=== PATIENT | female | born 1960 | race Caucasian/White ===

== ENCOUNTER → 2018-01-19 | Outpatient (CLI) | payer OTHER ==
[~2018-01-19] MED LIST: BRINTELLIX20 MG PO; BUSP10 PO; Bactrim Ds Tab1 EACH PO; CLON.5 PO; CLON1 PO; Effexor Xr37.5 MG PO; Keflex500 MG PO; METF500 PO; OMEP20ER; OMEP20ER PO; PARO20 PO; PRAZ1 PO; Pyridium200 MG PO; QUET100 PO; QUET200 PO; SERT100; SERT50 PO; TRAM50 PO; VITAMIN D-32000 UNIT PO; ZESTORETIC 20-121 EA PO
[2018-01-19 13:36] LABS: Influenza A Negative (NEGATIVE); Influenza B Negative (NEGATIVE)
== END | disposition home or self-care (01) ==
LOC: LAB UCHC 09:45
PROVIDERS: Physician Assistant
DX: J11.1 Influenza due to unidentified influenza virus with other respiratory manifestations (principal)
CPT/HCPCS: 87804

== ENCOUNTER → 2018-02-05 | Outpatient (CLI) | payer OTHER | LOC: LAB SHORT 10:57 → LAB EV 10:57 | DX: N39.0 Urinary tract infection, site not specified (principal) | CPT/HCPCS: 87077; 87086; 87147; 87186 ==

== ENCOUNTER → 2020-08-19 | Outpatient (CLI) | payer OTHER ==
[~2020-08-19] MED LIST changes: +ATIVAN0.5 MG; +ESCI10
== END | disposition home or self-care (01) ==
LOC: LAB SHORT 13:02 → LAB 13:02
DX: N39.0 Urinary tract infection, site not specified (principal)
CPT/HCPCS: 87086

== ENCOUNTER → 2020-09-04 | Outpatient (CLI) | payer OTHER | END | disposition home or self-care (01) | LOC: LAB 18:10 → LAB SHORT 18:10 | DX: R30.0 Dysuria (principal) | CPT/HCPCS: 87077; 87086; 87186 ==

== ENCOUNTER → 2022-01-07 | Outpatient (CLI) | payer MEDICARE, BC | LOC: LAB SHORT 11:25 | DX: M25.50 Pain in unspecified joint (principal) | CPT/HCPCS: 86430 ==

== ENCOUNTER → 2022-12-06 | Outpatient (CLI) | payer OTHER | END | disposition home or self-care (01) | LOC: LAB 09:33 → LAB SHORT 09:33 | DX: N39.0 Urinary tract infection, site not specified (principal) | CPT/HCPCS: 87086 ==

== ENCOUNTER → 2023-02-21 | Outpatient (CLI) | payer OTHER ==
[2023-02-21 17:33] LABS: BASOPHILS ABSOLUTE AUTO 0.06 K/mm3 (0.00-0.23); BASOPHILS PERCENT AUTO 1 % (0-2); EOSINOPHILS ABSOLUTE AUTO 0.09 K/mm3 (0.00-0.68); EOSINOPHILS PERCENT AUTO 1 % (0-6); Hematocrit 44.7 % (33.0-51.0); Hemoglobin 15.6 g/dL (11.5-16.0); IMMATURE GRAN ABSOLUTE AUTO 0.03 K/mm3 (0.00-0.10); IMMATURE GRAN PERCENT AUTO 0 % (0-1); LYMPHOCYTES ABSOLUTE AUTO 1.78 K/mm3 (0.84-5.20); LYMPHOCYTES PERCENT AUTO 21 % (21-46); MONOCYTES ABSOLUTE AUTO 0.54 K/mm3 (0.16-1.47); MONOCYTES PERCENT AUTO 6 % (4-13); Mean Corpuscular HGB 29.1 pg (26.0-34.0); Mean Corpuscular HGB Conc 34.9 g/dL (31.5-36.5); Mean Corpuscular Volume 83 fL (80-100); Mean Platelet Volume 10.7 fL (9.1-12.4); NEUTROPHILS ABSOLUTE AUTO 6.05 K/mm3 (1.96-9.15); NEUTROPHILS PERCENT AUTO 71 % (41-73); Platelet Count 205 K/mm3 (150-400); RDW Coefficient Variation 12.6 % (11.7-14.2); RDW Standard Deviation 38.1 fL (35.1-46.3); Red Blood Cell Count 5.36 M/mm3 (3.80-5.20); White Blood Cell Count 8.55 K/mm3 (4.00-11.30)
[2023-02-21 17:43] LABS: Albumin, Blood 4.2 g/dL (3.4-5.0); Albumin/Globulin Ratio 1.2 (0.8-1.8); Bilirubin, Total 0.5 mg/dL (0.1-1.0); Bun/Creatinine Ratio 8.3 (12.0-20.0); Calcium, Blood 9.4 mg/dL (8.5-10.1); Creatinine, Blood 1.2 mg/dL (0.40-1.00); Globulin, Blood 3.5 g/dL (2.2-4.0); Potassium, Blood 3.7 mmol/L (3.5-5.5); Total Protein, Blood 7.7 g/dL (6.4-8.2)
== END | disposition home or self-care (01) ==
LOC: LAB 17:27 → LAB SHORT 17:27
PROVIDERS: Physician Assistant Medical
DX: R10.84 Generalized abdominal pain (principal)
CPT/HCPCS: 80053; 83690; 85025

== ENCOUNTER → 2023-08-05 | Outpatient (CLI) | payer OTHER | END | disposition home or self-care (01) | LOC: LAB SHORT 16:55 → LAB 16:55 | DX: N39.0 Urinary tract infection, site not specified (principal) | CPT/HCPCS: 87077; 87086; 87186 ==

== ENCOUNTER 2023-10-11 08:39 | Day surgery (SDC) | payer OTHER ==
[~2023-10-11] VITALS: Ht 160 cm; Wt 103.9 kg
[2023-10-11] VITALS (18 sets, daily range): BP systolic 104–152; BP diastolic 49–84
[2023-10-11] MEDS ORDERED: DESVENLAFAXINE50 M3 PO (09:03)
[2023-10-11] MEDS ORDERED: Lisinopril-Hct1 EAC4 PO (09:14)
[2023-10-11] MEDS ORDERED: BRINTELLIX20 MG PO (09:15)
[2023-10-11] MEDS ORDERED: PRAV20 PO (09:16)
[2023-10-11] MEDS ORDERED: METFORMIN HCL500 MG PO (09:17)
[2023-10-11] MEDS ORDERED: PANT20 PO (09:17)
[2023-10-11] MEDS ORDERED: LEVE500 PO (09:18)
--- NOTE | 2023-10-11 13:31 | NUR ---
Patient up to Ambulate independently. Gait steady. Dressing to procedure site clean, dry, intact with no visible drainage, swelling, erythema or bruising noted. Discharge instructions reviewed with patient. Patient verbalizes understanding. Copy given to patient to take home. Patient States Post-Procedure ride home has been arranged. Discharged via wheelchair to private car for ride home.
== END 2023-10-11 13:33 | disposition home or self-care (01) ==
LOC: ORSCMMR 08:39 → ORD 10:15 → ORSCMMR 13:33
PROVIDERS: Surgery
PROC: 0FT44ZZ Resection of Gallbladder, Percutaneous Endoscopic Approach (ICD-10-PCS; principal; 2023-10-11 10:15)
DX: K80.10 Calculus of gallbladder with chronic cholecystitis without obstruction (principal); F41.9 Anxiety disorder, unspecified; F32.A Depression, unspecified; E11.22 Type 2 diabetes mellitus with diabetic chronic kidney disease; I12.9 Hypertensive chronic kidney disease with stage 1 through stage 4 chronic kidney disease, or unspecified chronic kidney disease; N18.31 Chronic kidney disease, stage 3a; E88.810 Metabolic syndrome; G40.909 Epilepsy, unspecified, not intractable, without status epilepticus; K21.9 Gastro-esophageal reflux disease without esophagitis; E66.9 Obesity, unspecified; Z68.41 Body mass index [BMI] 40.0-44.9, adult; Z79.84 Long term (current) use of oral hypoglycemic drugs; Z79.899 Other long term (current) drug therapy
CPT/HCPCS: 82947; 88304; A9270; J0694; J1100; J2250; J2371; J2405; J2704; J2765; J3010; J7120

== ENCOUNTER → 2024-11-15 | Outpatient (CLI) | payer OTHER ==
[~2024-11-15] MED LIST changes: +BUSP5 PO; +DESVENLAFAXINE50 M3 PO; +LEVE500 PO; +Lisinopril-Hct1 EAC4 PO; +METFORMIN HCL500 MG PO; +PANT20 PO; +PRAV20 PO
[2024-11-16 18:49] LABS: Microalb/Creat Ratio UR, Rand Unable to Calculate mg/g (0.000-30.000); Microalbumin, Random Urine <5.000 mg/L (0.000-20.000)
== END ==
LOC: LAB SHORT 15:20 → LAB 15:20
PROVIDERS: Family Medicine
DX: E11.59 Type 2 diabetes mellitus with other circulatory complications (principal); E11.22 Type 2 diabetes mellitus with diabetic chronic kidney disease; E11.69 Type 2 diabetes mellitus with other specified complication
CPT/HCPCS: 82043; 82570

== ENCOUNTER 2025-02-20 06:18 | Day surgery (SDC) | payer OTHER ==
[~2025-02-20] VITALS: Ht 160 cm; Wt 101.8 kg
[~2025-02-20 06:18] MED LIST changes: +Lactated Ringer's 1,000 ML IV ONE
[2025-02-20] MEDS ORDERED: CeFAZolin Sodium 2,000 MG VIAL ONE (06:20)
[2025-02-20] MEDS ORDERED: Tranexamic Acid 100 ML IV ONE ×2 (06:21→10:39)
[2025-02-20] MEDS ORDERED: JARDIANCE25 MG PO (06:38)
[2025-02-20] MEDS ORDERED: FLUV50 PO (06:39)
[2025-02-20] MEDS ORDERED: BUPR150ER PO (06:40)
[2025-02-20] MEDS ORDERED: Lactated Ringer's 1,000 ML IV ONE ×3 (06:52→10:52)
[2025-02-20] MEDS ORDERED: OxyCODONE HCL 10 MG TABCR ONE (06:57)
[2025-02-20] MEDS ORDERED: Acetaminophen 500 MG Tab ONE (06:58)
--- NOTE | 2025-02-20 07:18 | NUR ---
02/20/25 0718 CrawfordManuel RN EDUCATED ON D/C INSTRUCTIONS INCLUDING IS. PT DEMONSTRATED UNDERSTANDING WITH 2000 ON IS.
[2025-02-20] MEDS ORDERED: FentaNYL Citrate 50 MCG/ML 2 ML Injection ONE ×3 (07:43→10:55)
[2025-02-20] MEDS ORDERED: Midazolam HCl 1MG / ML 2ML Vial ONE (07:44)
[2025-02-20] MEDS ORDERED: propofoL 20 ML IV ONE (07:46)
[2025-02-20] MEDS ORDERED: Rocuronium Bromide 10 MG/ML 5ML Injection IV ONE (08:29)
[2025-02-20] MEDS ORDERED: Phenylephrine HCl 100 MCG/ML-NS 10MLSYR (1MG/10ML) ONE (08:29)
[2025-02-20] MEDS ORDERED: Ondansetron HCl 2 MG / ML 2ML Vial ONE ×2 (08:30→10:24)
--- NOTE | 2025-02-20 08:40 | NUR ---
02/20/25 0840 Yudith Ivey N 1 GM TXA STARTED IN OR BY DR LUTHER AT 0815
[2025-02-20] MEDS ORDERED: Dexamethasone Sod Phos 10 MG/ML 1ML VIAL ONE (09:22)
[2025-02-20] MEDS ORDERED: Sugammadex Sodium 200 MG/2ML SDV (100 MG/ML) ONE (09:33)
--- NOTE | 2025-02-20 10:06 | NUR ---
02/20/25 1006 Allyssa Hurd RADIOLOGY NOTIFIED OF POST OP XRAY. PER [facility] ORDER FOR POST OP FSBS. MEAGHAN RN AT BEDSIDE COMPLETING FSBS
[2025-02-20] MEDS ORDERED: HYDROmorphone HCl/Pf 1MG SYR ONE (10:25)
--- NOTE | 2025-02-20 10:44 | NUR ---
02/20/25 1043 Allyssa Hurd PT TO STEPDOWN, PT REPORTS FEELING HOT. STILL REPORTING PAIN AND NAUSEA. BLANKETS REMOVED FROM PATIENT AND COLD WET RAGS PLACED ON PATIENT'S FOREHEAD. VSS.
[2025-02-20] MEDS ORDERED: Prochlorperazine Edisylate 10 mg Vial IV PRN (10:55)
[2025-02-20 12:17] VITALS: BP 125/72
== END 2025-02-20 12:33 | disposition home or self-care (01) ==
LOC: ORSCSDS 06:18
PROVIDERS: Orthopaedic Surgery
PROC: 0RRK00Z Replacement of Left Shoulder Joint with Reverse Ball and Socket Synthetic Substitute, Open Approach (ICD-10-PCS; principal; 2025-02-20 07:30)
DX: M19.012 Primary osteoarthritis, left shoulder (principal); E11.22 Type 2 diabetes mellitus with diabetic chronic kidney disease; I12.9 Hypertensive chronic kidney disease with stage 1 through stage 4 chronic kidney disease, or unspecified chronic kidney disease; N18.9 Chronic kidney disease, unspecified; Z79.84 Long term (current) use of oral hypoglycemic drugs; Z79.899 Other long term (current) drug therapy; E66.9 Obesity, unspecified; Z68.39 Body mass index [BMI] 39.0-39.9, adult
CPT/HCPCS: 73030; 82947; A9270; C1713; C1776; J0690; J0780; J1100; J1171; J2250; J2371; J2405; J2704; J3010; J7120

== ENCOUNTER 2025-09-19 19:33 | Emergency (ER) | payer OTHER ==
[~2025-09-19] VITALS: Ht 160 cm; Wt 98.4 kg
[~2025-09-19 19:33] MED LIST changes: +BUPR150ER PO; +FLUV50 PO; +JARDIANCE25 MG PO; -Lactated Ringer's 1,000 ML IV ONE
[2025-09-19 19:55] VITALS: BP 140/82
[2025-09-19] MEDS ORDERED: Ketorolac Tromethamine 15mg Vial IV ONE (20:10)
[2025-09-19 20:29] LABS: BASOPHILS ABSOLUTE AUTO 0.06 K/mm3 (0.00-0.23); BASOPHILS PERCENT AUTO 1 % (0-2); EOSINOPHILS ABSOLUTE AUTO 0.24 K/mm3 (0.00-0.68); EOSINOPHILS PERCENT AUTO 3 % (0-6); Hematocrit 45.8 % (33.0-51.0); Hemoglobin 14.6 g/dL (11.5-16.0); IMMATURE GRAN ABSOLUTE AUTO 0.03 K/mm3 (0.00-0.10); IMMATURE GRAN PERCENT AUTO 0 % (0-1); LYMPHOCYTES ABSOLUTE AUTO 2.02 K/mm3 (0.84-5.20); LYMPHOCYTES PERCENT AUTO 24 % (21-46); MONOCYTES ABSOLUTE AUTO 0.51 K/mm3 (0.16-1.47); MONOCYTES PERCENT AUTO 6 % (4-13); Mean Corpuscular HGB Conc 31.9 g/dL (31.5-36.5); Mean Corpuscular Volume 88 fL (80-100); NEUTROPHILS ABSOLUTE AUTO 5.41 K/mm3 (1.96-9.15); NEUTROPHILS PERCENT AUTO 65 % (41-73); NRBC ABSOLUTE 0.00 K/mm3 (0.00-0.02); NRBC Auto 0.0 /100 WBC (0.0-0.2); Platelet Count 225 K/mm3 (150-400); RDW Coefficient Variation 14.5 % (11.7-14.2); RDW Standard Deviation 46.6 fL (35.1-46.3)
[2025-09-19 21:12] LABS: Alanine Aminotransfer (ALT/SGP 44.0 U/L (12-78); Albumin, Blood 4.4 g/dL (3.4-5.0); Albumin/Globulin Ratio 1.4 (0.8-1.8); Anion Gap 4.0 mmol/L (3-11); Aspartate Aminotrans (AST/SGOT 19.0 U/L (12-37); Bilirubin, Total 0.3 mg/dL (0.1-1.0); Blood Urea Nitrogen 10.0 mg/dL (8-24); CO2, Blood 29.0 mmol/L (21-32); Calcium, Blood 9.3 mg/dL (8.5-10.1); Chloride, Blood 109.0 mmol/L (98-108); Creatinine, Blood 1.02 mg/dL (0.40-1.00); Globulin, Blood 3.2 g/dL (2.2-4.0); Glucose, Blood 145.0 mg/dL (70-99); Potassium, Blood 4.3 mmol/L (3.5-5.5); Sodium, Blood 138.0 mmol/L (136-145); Total Protein, Blood 7.6 g/dL (6.4-8.2)
[2025-09-19] MEDS ORDERED: DiphenhydrAMINE HCl 50 MG/ML 1ML Vial IV ONE (22:55)
[2025-09-19] MEDS ORDERED: FentaNYL Citrate 50 MCG/ML 2 ML Injection IV ONE (23:00)
[2025-09-20] MEDS ORDERED: RX Prepack 6 Tabs Oxycodone 5mg UD ONE (00:55)
[2025-09-20] MEDS ORDERED: OXAYDO5 M1 PO (00:57)
== END 2025-09-20 01:19 | disposition home or self-care (01) ==
LOC: ER 19:33
PROVIDERS: Student in an Organized Health Care Education/Training Program
DX: S82.852A Displaced trimalleolar fracture of left lower leg, initial encounter for closed fracture (principal); Z88.5 Allergy status to narcotic agent; Z88.8 Allergy status to other drugs, medicaments and biological substances; E11.9 Type 2 diabetes mellitus without complications; Z79.899 Other long term (current) drug therapy; Z90.710 Acquired absence of both cervix and uterus; W18.30XA Fall on same level, unspecified, initial encounter
CPT/HCPCS: 36415; 73502; 73560-LT; 73590; 73600; 80053; 82728; 83036; 83540; 83550; 83735; 84443; 85025; 96374; 96375; 99283-25; A9270; J1200; J1885; J3010